=== PATIENT | female | born 1965 | race Caucasian/White ===

== ENCOUNTER → 2022-11-29 09:10 | Outpatient (BNVA) | payer OTHER, SELFPAY | PROVIDERS: PCP Internal Medicine; Visit Provider Internal Medicine Rheumatology | DX: M35.00 Sjogren syndrome, unspecified (principal); M35.9 Systemic involvement of connective tissue, unspecified; K11.7 Disturbances of salivary secretion; R05.3 Chronic cough | CPT/HCPCS: 99212 ==

== ENCOUNTER 2022-11-29 10:25 | Outpatient (REF) | payer OTHER, SELFPAY ==
[2022-11-29 13:27] LABS: MANUAL DIFF FLAG NO
[2022-11-29 13:30] LABS: Basophils Absolute Auto 0.1 X10*3/uL (0.0-0.2); Basophils Percent Auto 2.1 % (0-2); Eosinophils Absolute Auto 0.2 X10*3/uL (0.0-0.4); Eosinophils Percent Auto 3.3 % (0-4); Hematocrit 40.8 % (37.0-47.0); Hemoglobin 13.9 g/dl (12.0-16.0); Imm Gran Abs Auto 0.02 X10*3/uL (0.00-0.03); Imm Gran Pct Auto 0.4 % (0.0-0.4); Lymphocytes Absolute Auto 1.7 X10*3/uL (1.2-4.9); Lymphocytes Percent Auto 34.5 % (20-40); Mean Corpuscular HGB Conc 34.1 g/dl (31.0-35.0); Mean Corpuscular Hemoglobin 32.3 pg (27.0-33.0); Mean Corpuscular Volume 94.9 fL (80.0-98.0); Mean Platelet Volume 9.4 fL (9.4-12.3); Monocytes Absolute Auto 0.5 X10*3/uL (0.1-1.2); Monocytes Percent Auto 10.3 % (2-11); Neutrophils Absolute Auto 2.4 x10*3/uL (2.0-8.3); Neutrophils Percent Auto 49.4 % (45-73); Platelet Count 231 X10*3/uL (160-400); Red Cell Distribution Width 12.5 % (11.0-16.0); White Blood Count 4.9 X10*3/uL (4.8-10.8)
[2022-11-29 13:59] LABS: Alanine Aminotransferase 7 U/L (0-31); Albumin Level 4.5 g/dL (3.5-5.0); Alkaline Phosphatase 37 U/L (39-117); Anion Gap 12 (12-20); Aspartate Amino Transferase 20 U/L (5-31); Bilirubin Total 0.7 mg/dL (0.0-1.0); Blood Urea Nitrogen 19 mg/dL (9-16); C Reactive Protein 0.11 mg/dL (< or = 0.50); Calcium 9.8 mg/dL (8.4-10.2); Carbon Dioxide 28 mmol/L (22-29); Chloride 105 mmol/L (96-108); Estimated Glomerular Filt Rate > 60; Glucose Random 89 mg/dL (60-115); Potassium 4.5 mmol/L (3.3-5.1); Sodium 140 mmol/L (135-145); Total Protein 7.5 g/dL (6.5-8.0)
[2022-11-29 14:19] LABS: Erythrocyte Sedimentation Rate 6 MM/HR (0-20)
[2022-11-29 14:22] LABS: Creatinine Urine 21.74 mg/dL; Total Protein Urine Random < 7 mg/dL (<12)
== END 2022-11-29 10:26 | disposition home or self-care (01) ==
LOC: HO.10HDL 10:25
PROVIDERS: Visit Provider Internal Medicine Rheumatology
DX: M35.00 Sjogren syndrome, unspecified (principal)
CPT/HCPCS: 36415; 80053; 84156; 85025; 85652; 86140

== ENCOUNTER 2022-12-02 13:16 | Outpatient (REF) | payer OTHER, SELFPAY ==
--- NOTE | ~2022-12-02 | XR_ITS ---
EXAMINATION: XR CHEST CLINICAL INFORMATION: R05.3 - Chronic cough COMPARISON: None available. TECHNIQUE: 2 views of the chest were obtained. FINDINGS: The lungs are clear. No airspace consolidation or groundglass opacity or effusion. The heart is normal in size. The vascularity is normal. The hilar and mediastinal contours are unremarkable. There are mild multilevel degenerative changes thoracic spine. Bilateral implants are present with benign overlying capsular calcifications. XR/XR chest 2V IMPRESSION: -Lungs clear.
== END 2022-12-02 13:17 | disposition home or self-care (01) ==
LOC: HO.XRAY 13:16
PROVIDERS: PCP Internal Medicine; Visit Provider Internal Medicine Rheumatology
DX: M35.00 Sjogren syndrome, unspecified (principal); R05.3 Chronic cough
CPT/HCPCS: 71046

== ENCOUNTER 2023-02-06 12:46 | Outpatient (REF) | payer OTHER, SELFPAY ==
[2023-02-06 13:54] LABS: Anion Gap 14 (12-20); Blood Urea Nitrogen 16 mg/dL (9-16); Calcium 9.9 mg/dL (8.4-10.2); Carbon Dioxide 24 mmol/L (22-29); Chloride 105 mmol/L (96-108); Estimated Glomerular Filt Rate > 60; Glucose Random 92 mg/dL (60-115); Potassium 3.6 mmol/L (3.3-5.1); Sodium 139 mmol/L (135-145)
== END 2023-02-06 12:47 | disposition home or self-care (01) ==
LOC: HO.10HDL 12:46
PROVIDERS: Visit Provider Internal Medicine Rheumatology
DX: I10 Essential (primary) hypertension (principal); M35.00 Sjogren syndrome, unspecified
CPT/HCPCS: 36415; 80048

== ENCOUNTER 2023-02-20 09:58 | Outpatient (REF) | payer OTHER, SELFPAY ==
--- NOTE | ~2023-02-20 | CT_ITS ---
EXAMINATION: CT CHEST WITH CONTRAST CLINICAL INFORMATION: Chronic cough. ?ILD. COMPARISON: Chest x-ray of 12/02/2022. TECHNIQUE: Multidetector volumetric CT imaging of the chest was obtained after the administration of 85 mL of Omnipaque 350 intravenous contrast without immediate adverse reactions. Axial MIP volume rendering provided. Sagittal and coronal reformatted images were obtained. This CT examination was performed using dose optimization techniques as appropriate, variously including the following: *Automated exposure control *Adjustment of mA and/or kV according to patient size (this includes techniques or standardized protocols for targeted exams where dose is matched to indication/reason for exam; i.e. extremities or head) *Use of iterative reconstruction technique DLP: 125 mGy-cm FINDINGS: LUNGS: Central airways are patent. There is some central bronchial wall thickening present without evidence of bronchiectasis. A few blebs are seen about the right apex. There appear to be minimal changes of centrilobular emphysema within the upper lobes. No confluent parenchymal disease is seen. A few sub-4 mm densities are present. There are a few normal-appearing intrafissural lymph nodes seen. There is a noncalcified 4 mm nodular density within the right middle lobe adjacent to the major fissure on image #[address] series #5. There is a 4 mm noncalcified density within the left upper lobe adjacent to the major fissure on image #[address] series #5. MEDIASTINUM: Heart normal size. Mild coronary artery calcification is present. No pericardial effusion. No thoracic aortic aneurysm or dissection. No mediastinal or hilar lymphadenopathy identified. Visualized portions of the thyroid gland appear unremarkable. PLEURA: There is no pleural effusion. No pleural mass or thickening. AXILLA: Prominent axillary lymph nodes are seen bilaterally. There are calcified anaya within both breast implants with the left implant being smaller than the right and with appearance of linguini sign within the implants consistent with implant rupture. UPPER ABDOMEN: There is a 4 cm right renal upper pole simple-appearing cyst which does not require followup. OSSEOUS STRUCTURES: No suspicious destructive bony lesions identified. CT/CT chest w IV con IMPRESSION: No significant findings of interstitial lung disease. Appearance of breast implant ruptures with calcified capsules. 4 mm nodular densities bilaterally adjacent to the fissures but without oblong or triangular appearance so I cannot definitely call these intrafissural lymph nodes. According to the UPDATED 2017 Fleischner Society recommendations, the advised follow-up imaging for solid nodules < 6 mm is: LOW RISK PATIENT: No routine follow-up. HIGH RISK PATIENT: Optional CT at 12 months.
[2023-02-20] MEDS: iohexoL 350 MG/ML 100 ML INFUS..BTL 65 ML IV (10:48)
== END 2023-02-20 09:59 | disposition home or self-care (01) ==
LOC: HO.CT 09:58
PROVIDERS: PCP Internal Medicine; Visit Provider Internal Medicine Rheumatology
DX: M35.9 Systemic involvement of connective tissue, unspecified (principal); R05.3 Chronic cough; K11.7 Disturbances of salivary secretion; Z87.891 Personal history of nicotine dependence
CPT/HCPCS: 71260; Q9967

== ENCOUNTER 2024-06-13 07:56 | Outpatient (AMB) | payer OTHER, SELFPAY ==
--- NOTE | 2024-06-13 08:02 | A.OFFVIS_ITS ---
Vital Signs 06/13/24 08:03 Height 5 ft 5 in Weight 172 lb BMI 28.6 BP 128/78 Blood Pressure Location Lt brachial Position Sitting Pulse 60 Pulse Source Pulse Oximeter Pulse Oximetry (%) 98 Oxygen Delivery Method Room Air Intake Visit Reasons: SS/CM Intake Note: Patient presents today for sjorgen's and alopecia, and arthritis. Allergies clindamycin Adverse Reaction (Unknown, Verified 06/13/24 08:07) Hives, Rash Medication List - Last Reconciled 06/13/24 by Stacy Pepe MD benzonatate 100 mg PO BID-TID PRN cevimeline 1 cap PO TID escitalopram oxalate 20 mg PO DAILY lisinopril 10 mg PO DAILY lorazepam 0.5 mg PO DAILY PRN metoprolol succinate ER 25 mg PO DAILY trazodone 100 mg PO BEDTIME tretinoin 0.025% appl topical BEDTIME HPI Comments Details: Patient is a 58-year-old female current everyday smoker with hypertension, alopecia areata currently receiving steroid injections, photosensitivity and dry eyes and dry mouth currently being managed as Sjogren's here for follow-up. Interval History: Last seen 11/29/[address] Kalpesh Lynn. At that time she was started on cevimeline for dry mouth. Today, Patient continues to report dry eyes and dry mouth. No inflammatory type joint pain. Follows up with Dermatology for steroid shots with improvement in her alopecia. Has scattered arthralgias but no prolonged morning stiffness. Rheumatologic History: Patient established care 11/29/[address] Kalpesh Lynn. At that time she was being evaluated for Sjogren's disease. Started on cevimeline. Sjogrens diagnosis based on SSA and dry eyes and mouth. No objective testing Current Rheumatology Medication(s): Cevemiline 30mg tid PFSH Medical History Alopecia areata LUCY positive Anxiety and depression COPD (chronic obstructive pulmonary disease) Hyperlipidemia Hypertension Insomnia Migraine Restless leg syndrome Rosacea Sjogren's syndrome Surgical History H/O breast reconstruction Family History Mother History of thyroid disorder Family/Other Lupus Social History Alcohol intake: current Patient Tobacco Use Status: Current everyday Tobacco user Cigarette Packs Per Day: 1 Review of Systems Const Details: Review of Systems Constitutional: Denies fever, chills, weight loss ENT: Denies vision changes, eye pain or eye redness GI: Denies nausea, vomiting, diarrhea, abdominal pain, change in BM Pulm: Denies SOB, JIMENEZ, hemoptysis, wheezing Cards: Denies chest pain, palpitations Skin: Denies Raynaud's, nail changes, photosensitivity, RESIDENTIAL CHILD CARE COUNSELOR: Denies headaches, weakness, paresthesias, recurrent falls MSK: as per HPI All other systems reviewed and are unremarkable except noted above Physical Exam Vital Signs: Last Vital Signs Pulse 60 06/13/24 08:03 BP 128/78 06/13/24 08:03 Pulse Ox 98 06/13/24 08:03 Oxygen Delivery Method Room Air 06/13/24 08:03 BMI result Body Mass Index 28.6 Physical Examination CONSTITUITIONAL Patient alert and cooperative. Well appearing and in no apparent painful distress HEENT Conjunctiva and sclera clear. ?Pupils equal round and reactive to light. ?No lymphadenopathy. ?Normal dentition. No oral or nasal ulcers noted. No evidence of discoid rash to the edu of ears CHEST/RESPIRATORY SYSTEM Normal respiratory effort and able to speak in complete sentences. ?Clear to auscultation bilaterally. ?No crackles, rales, rhonchi, wheezes heard. CARDIAC SYSTEM Regular rate and rhythm. ?S1 and S2 heard no murmurs. ?Radial pulses intact bilaterally MSK Hands: ?Good high school tutor strength bilaterally - 5/5. ?No deformities noted. ?No s ynovitis noted to the MCPs, PIPs or DIPs. ?No tenderness to palpation of these joints. Wrists: ?Full range of motion at the wrists without pain. ?No tenderness to palpation or synovitis noted to the wrists. Elbows: Full range of motion without pain. No tenderness, weakness, swelling, increased warmth or erythema. Shoulders: Full range of motion without pain. No tenderness, weakness, swelling, increased warmth or erythema. Hips: Full range of motion without pain. Hip bursa: No tenderness to palpation Knees: ?Full range of motion. ?No tenderness, swelling, increased warmth or erythema.?No effusion or crepitations Ankles: Full range of motion. ?No tenderness, swelling, increased warmth or erythema.? Feet: ?Negative squeeze test. ?No tenderness to palpation or swelling of the M TPs. Tender points:??No tenderness to palpation of the neck, shoulders, chest, elbows, hips, buttocks or knees. SKIN Skin intact without rashes. Manuela's test Left eye 10mm Right 15mm Results Reviewed Results Reviewed: Laboratory Tests 11/29/22 02/06/23 10:31 12:50 WBC 4.9 RBC 4.30 Hgb 13.9 Hct 40.8 Plt Count 231 Sodium 139 Potassium 3.6 Chloride 105 Carbon Dioxide 24 BUN 16 Creatinine 0.82 C-Reactive Protein 0.11 Assessment & Plan Assessment & Plan (1) Sjogren's syndrome: Code(s): M35.00 - Sjogren syndrome, unspecified Category: Medical Qualifiers: Sjogren organ or system involvement: unspecified organ involvement Qualified Code(s): M35.00 - Sjogren syndrome, unspecified Plan: #?Sjogren's Syndrome Patient carries a diagnosis of Sjogren's syndrome based on sicca symptoms and positive LUCY with SSA. Lab work not seen in chart. And today her Manuela's te st was not indicative of Sjogren's sicca symptoms. Her left eye was mild dryness with 10 mm on the test and her right eye was normal. We will check labs today but I do not think this patient has Sjogren's. She may have sicca symptoms which she should follow up with Ophthalmology for (she has an appointment in July) but no formal diagnosis of Sjogren's Plan I spent 35 minutes reviewing the record and labs, seeing the patient, performing Manuela's test, discussing the treatment plan and documenting in the medical record ? Orders: Orders Complement C3 Today M35.00 - Sjogren syndrome, unspecified Erythrocyte Sedimentation Rate Today M35.00 - Sjogren syndrome, unspecified Rheumatoid Factor Today M35.00 - Sjogren syndrome, unspecified Complement C4 Today M35.00 - Sjogren syndrome, unspecified Complete Blood Count Auto Diff Today M35.00 - Sjogren syndrome, unspecified Comprehensive Met. Panel Today M3. - Sjogren syndrome, unspecified C Reactive Protein Today M35.00 - Sjogren syndrome, unspecified LUCY Reflex Titer and Pattern Today M35.00 - Sjogren syndrome, unspecified Anti Extractable Nuclear Ag Today M35.00 - Sjogren syndrome, unspecified Sjogren's Antibodies Today M35.00 - Sjogren syndrome, unspecified Protein Electrophoresis, Serum Today M35.00 - Sjogren syndrome, unspecified Coding Level of Care Code Est Pt Level 4 (01449) Diagnoses Sjogren's syndrome, with unspecified organ involvement M35.00 Sjogren organ or system involvement: unspecified organ involvement
[2024-06-13 08:03] VITALS: BP 128/78; PULSE 60; O2SAT 98; BMI 28.6
== END 2024-06-13 09:17 | disposition home or self-care (01) ==
LOC: HO.RHE 07:57
PROVIDERS: PCP Internal Medicine; Visit Provider Student in an Organized Health Care Education/Training Program
DX: M35.00 Sjogren syndrome, unspecified (principal)
CPT/HCPCS: 99214

== ENCOUNTER 2024-06-13 07:56 | Outpatient (REF) | payer OTHER, SELFPAY ==
[2024-06-13 09:12] LABS: MANUAL DIFF FLAG NO
[2024-06-13 10:00] LABS: Basophils Absolute Auto 0.1 X10*3/uL (0.0-0.2); Basophils Percent Auto 0.8 % (0-2); Eosinophils Absolute Auto 0.1 X10*3/uL (0.0-0.4); Eosinophils Percent Auto 2.2 % (0-4); Hematocrit 37.6 % (37.0-47.0); Hemoglobin 12.8 g/dl (12.0-16.0); Imm Gran Abs Auto 0.01 X10*3/uL (0.00-0.03); Imm Gran Pct Auto 0.2 % (0.0-0.4); Lymphocytes Absolute Auto 2.1 X10*3/uL (1.2-4.9); Lymphocytes Percent Auto 32.5 % (20-40); Mean Corpuscular Hemoglobin 32.1 pg (27.0-33.0); Mean Corpuscular Volume 94.2 fL (80.0-98.0); Mean Platelet Volume 9.4 fL (9.4-12.3); Monocytes Absolute Auto 0.6 X10*3/uL (0.1-1.2); Monocytes Percent Auto 9.8 % (2-11); Neutrophils Absolute Auto 3.5 x10*3/uL (2.0-8.3); Neutrophils Percent Auto 54.5 % (45-73); Platelet Count 255 X10*3/uL (160-400); Red Blood Count 3.99 X10*6/uL (4.20-5.50); Red Cell Distribution Width 13.1 % (11.0-16.0); White Blood Count 6.3 X10*3/uL (4.8-10.8)
[2024-06-13 10:32] LABS: Rheumatoid Factor < 13.0 IU/mL (<15.0)
[2024-06-13 10:35] LABS: Erythrocyte Sedimentation Rate 10 MM/HR (0-20)
[2024-06-13 10:39] LABS: Alanine Aminotransferase 12 U/L (0-31); Albumin Level 4.4 g/dL (3.5-5.0); Alkaline Phosphatase 39 U/L (39-117); Anion Gap 13 (12-20); Aspartate Amino Transferase 23 U/L (5-31); Bilirubin Total 0.5 mg/dL (0.0-1.0); Blood Urea Nitrogen 19 mg/dL (9-16); C Reactive Protein 0.13 mg/dL (< or = 0.50); Calcium 9.7 mg/dL (8.4-10.2); Carbon Dioxide 23 mmol/L (22-29); Chloride 108 mmol/L (96-108); Estimated Glomerular Filt Rate > 60; Glucose Random 91 mg/dL (60-115); Potassium 3.9 mmol/L (3.3-5.1); Sodium 140 mmol/L (135-145); Total Protein 7.7 g/dL (6.5-8.0)
[2024-06-14 12:37] LABS: Prot Elec - Albumin 4.4 g/dL (3.8-4.8); Prot Elec - Alpha1 0.2 g/dL (0.2-0.3); Prot Elec - Alpha2 0.7 g/dL (0.5-0.9); Prot Elec - Beta 1 0.4 g/dL (0.4-0.6); Prot Elec - Beta 2 0.5 g/dL (0.2-0.5); Prot Elec - Gamma 1.3 g/dL (0.8-1.7); Prot Elec - Total Protein 7.5 g/dL (6.1-8.1)
[2024-06-14 14:33] LABS: Complement C3 129 mg/dL (83-193)
[2024-06-14 21:32] LABS: Antibody to SS-A Antigen 7.4 POS AI (<1.0 NEG); Antibody to SS-B Antigen <1.0 NEG AI (<1.0 NEG); SM/Ribonucleoprotein Ab <1.0 NEG AI (<1.0 NEG); Smith Protein <1.0 NEG AI (<1.0 NEG)
[2024-06-19 14:44] LABS: Anti Nuclear Antibody Screen POSITIVE (NEGATIVE)
== END 2024-06-13 07:57 | disposition home or self-care (01) ==
LOC: HO.LAB 07:56
PROVIDERS: PCP Internal Medicine; Visit Provider Student in an Organized Health Care Education/Training Program
DX: M35.00 Sjogren syndrome, unspecified (principal)
CPT/HCPCS: 36415; 80053; 84165; 85025; 85652; 86038; 86039; 86140; 86160; 86235; 86431